=== PATIENT | male | born 1975 | race Hispanic/Latino ===

== ENCOUNTER 2025-08-02 12:15 | Inpatient (IN) | payer OTHER, SELFPAY ==
[2025-08-02 12:58] LABS: ALT (SGPT) 103 U/L (Less than 45); AST (SGOT) 337 U/L (11-34); Albumin 1.9 g/dL (3.1-4.5); Alkaline Phosphatase 254 U/L (40-110); Anion Gap 27 mmol/L (10-20); BUN (Urea Nitrogen) 103 mg/dL (8.9-20.6); Bilirubin, Total 13.9 mg/dL (0.3-1.2); Calc. Creatinine Clearance 0 mL/min (70-130); Calcium 7.5 mg/dL (7.8-10.44); Carbon Dioxide 13 mmol/L (22-29); Chloride 98 mmol/L (98-107); Globulin 4.6 g/dL (2.4-3.5); Glucose 93 mg/dL (70-105); Lipase 146 U/L (8-78); Magnesium 2.3 mg/dL (1.6-2.6); Potassium 4.0 mmol/L (3.5-5.1); Sodium 134 mmol/L (136-145)
[2025-08-02 13:01] LABS: INR-International Normal Ratio 3.5; Prothrombin Time 35.4 sec (12.0-14.7)
[2025-08-02 13:02] LABS: PTT 55.1 sec (22.9-36.1)
[2025-08-02 13:08] LABS: Acetaminophen 17 mcg/mL (Less than 10); Salicylate Less than 8.0 mg/dL (Less than 8.0)
[2025-08-02 13:11] LABS: D-Dimer Test 13.9 mcg/mL (0.27-0.43)
[2025-08-02] MEDS ORDERED: Famotidine/PF 20 mg/2ml Vial ONE (13:25)
[2025-08-02] MEDS ORDERED: Pantoprazole 40 MG VIAL ONE (13:25)
[2025-08-02 14:15] LABS: Hematocrit 24.1 % (42.0-52.0); Hemoglobin 8.1 g/dL (14.0-18.0); Mean Corpuscular Hemoglobin 30.5 pg (27.0-31.0); Mean Corpuscular Volume 90.6 fL (78.0-98.0); Platelet Count 23 10x3/uL (130-400); Red Blood Cell (RBC) Count 2.66 mill/uL (4.70-6.10); White Blood Cell (WBC) Count 39.08 10x3/uL (4.8-10.8)
[2025-08-02 14:15] LABS: Hematocrit 24.3 % (42.0-52.0); Hemoglobin 7.9 g/dL (14.0-18.0); Mean Corpuscular Hemoglobin 29.9 pg (27.0-31.0); Mean Corpuscular Volume 92.0 fL (78.0-98.0); Platelet Count 26 10x3/uL (130-400); Red Blood Cell (RBC) Count 2.64 mill/uL (4.70-6.10); Reflex for Review?? YES; White Blood Cell (WBC) Count 37.76 10x3/uL (4.8-10.8)
[2025-08-02] MEDS ORDERED: Octreotide Acetate 1,250 MCG in Sodium Chloride 0.9% 250 ML 250 ML IVPB SCH ×2 (14:15→16:30)
[2025-08-02] MEDS ORDERED: Azithromycin 500 MG VIAL ONE (14:33)
[2025-08-02] MEDS ORDERED: cefTRIAXone (ROCEPHIN) 2 GM VIAL ONE (14:33)
[2025-08-02 14:48] LABS: Anisocytosis MARKED = >30 cells HPF (0-5); Burr Cells SLIGHT = 2-5 cells HPF (0-1); Macrocytosis MODERATE=16-30 cells HPF (0-5); Microcytosis SLIGHT = 6-15 cells HPF (0-5); Platelet Adequacy Comment Significant Decrease; Polychromasia SLIGHT = 2-3 cells HPF (0-2); Smudge Cells 2.0 %
[2025-08-02 14:51] LABS: Anisocytosis MODERATE=16-30 cells HPF (0-5); Burr Cells MODERATE= 6-15 cells HPF (0-1); Dohle Bodies SLIGHT; Macrocytosis MODERATE=16-30 cells HPF (0-5); Microcytosis SLIGHT = 6-15 cells HPF (0-5); Ovalocytes SLIGHT = 2-5 cells HPF (0-1); Platelet Adequacy Comment Significant Decrease; Poikilocytosis MODERATE=16-30 cells HPF (0-5); Polychromasia SLIGHT = 2-3 cells HPF (0-2); Smudge Cells 1.0 %; Target Cells SLIGHT = 2-5 cells HPF (0-1); Toxic Granulation MODERATE
[2025-08-02] MEDS ORDERED: Communication Order-Pharmacy FS SCH (16:17)
[2025-08-02] MEDS ORDERED: Ondansetron PF 4 MG/2 ML Vial IVP PRN (16:19)
[2025-08-02] MEDS ORDERED: Melatonin 3 MG TAB PO PRN (16:19)
[2025-08-02 17:13] LABS: Magnesium 2.4 mg/dL (1.6-2.6)
[2025-08-02] MEDS: Vancomycin (BATCH) 2.5 GM in Premix 1 BAG IVPB SCH (17:17)
[2025-08-02] MEDS: DEXTROSE 5% IV SCH ×2 (17:18→19:47)
[2025-08-02] MEDS: WATER IV SCH ×2 (17:18→19:47)
[2025-08-02] MEDS: ACETYLCYSTEINE IV SCH ×2 (17:18→19:47)
[2025-08-02] MEDS: Albumin 25% 25 GM (100 mL) BOT IVPB SCH (17:23)
[2025-08-02] MEDS: Pantoprazole 40 MG VIAL IVP SCH (17:23)
[2025-08-02] MEDS: Calcium Chloride 1 GM/10 ML Abboject SYRINGE IVP SCH (17:23)
[2025-08-02 17:51] LABS: Actual Bicarbonate (HCO3v) 15.7 mEq/L (22-28); Base Excess -10.3 mEq/L (-2.0 to +3.0); Calcium, Ionized (venous) 0.87 mmol/L (1.16-1.32); Chloride (VBG) 100 mmol/L (98-106); Hematocrit-VBG 29 % (42.0-52.0); Hemoglobin (Hb) 9.7 g/dL (13.1-17.2); Potassium (VBG) 4.32 mmol/L (3.70-5.30); Sodium 133 mmol/L (133-146)
[2025-08-02 18:29] VITALS: BMI 48.0
[2025-08-02] MEDS ORDERED: Vancomycin Dose by Levels Sliding Scale (Wt > 99) FS SCH (18:45)
[2025-08-02 18:59] LABS: Cocaine Metabolite Screen Negative (Negative); THC/Cannabinoid Screen Negative (Negative); Tricyclic Screen Negative (Negative)
[2025-08-02 19:17] LABS: Bacteria/HPF None Seen HPF (None Seen); Glucose, Urine (Dipstick) 30 mg/dL (Negative); Leukocyte 25 Leu/uL (Negative); Protein, Urine (Dipstick) 70 mg/dL (Neg-Trace); Specific Gravity, Urine 1.028 (1.002-1.036); WBC/HPF 21-50 HPF (0-3)
[2025-08-02] MEDS ORDERED: Vancomycin 1 GM in Sodium Chloride 0.9% 250 ML 300 ML IVPB SCH (21:00)
[2025-08-02] MEDS ORDERED: Pantoprazole 40 MG VIAL IVP SCH (21:00)
[2025-08-02 21:01] LABS: Hematocrit 26.2 % (42.0-52.0); Hemoglobin 8.2 g/dL (14.0-18.0); Platelet Count 22 10x3/uL (130-400)
[2025-08-02] MEDS: Multivit, Therapeutic 1 TAB PO SCH (21:05)
[2025-08-02] MEDS: Folic Acid 1 MG TAB PO SCH (21:05)
[2025-08-02] MEDS: Pantoprazole 80 MG, Admixture Fee 1 EACH in Sodium Chloride 0.9% 100 ML IVPB SCH (21:21)
[2025-08-02] MEDS: Mupirocin 1 GM TUBE NASAL DECOLONIZATION TP SCH (22:46)
[2025-08-03] MEDS: DEXTROSE 5% IV SCH (01:48)
[2025-08-03] MEDS: ACETYLCYSTEINE IV SCH (01:48)
[2025-08-03] MEDS: WATER IV SCH (01:48)
[2025-08-03 04:43] LABS: Hematocrit 21.2 % (42.0-52.0); Hemoglobin 6.9 g/dL (14.0-18.0); Mean Corpuscular Hemoglobin 30.0 pg (27.0-31.0); Mean Corpuscular Volume 92.2 fL (78.0-98.0); Platelet Count 17 10x3/uL (130-400); Red Blood Cell (RBC) Count 2.30 mill/uL (4.70-6.10); White Blood Cell (WBC) Count 32.12 10x3/uL (4.8-10.8)
[2025-08-03 04:48] LABS: ALT (SGPT) 98 U/L (Less than 45); AST (SGOT) 300 U/L (11-34); Albumin 2.2 g/dL (3.1-4.5); Alkaline Phosphatase 185 U/L (40-110); Anion Gap 25 mmol/L (10-20); BUN (Urea Nitrogen) 115 mg/dL (8.9-20.6); Bilirubin, Total 15.0 mg/dL (0.3-1.2); Calc. Creatinine Clearance 39 mL/min (70-130); Calcium 7.4 mg/dL (7.8-10.44); Carbon Dioxide 16 mmol/L (22-29); Chloride 98 mmol/L (98-107); Globulin 4.2 g/dL (2.4-3.5); Glucose 196 mg/dL (70-105); Potassium 4.1 mmol/L (3.5-5.1); Sodium 135 mmol/L (136-145)
[2025-08-03 05:21] LABS: Platelet Adequacy Comment Significant Decrease; Polychromasia SLIGHT = 2-3 cells HPF (0-2); Smudge Cells 3.0 %
[2025-08-03] MEDS: Furosemide 20 MG (2 mL) VIAL SLOW IVP SCH (06:45)
[2025-08-03] MEDS ORDERED: fentaNYL PF 100 MCG/2 ML SYRINGE ONE (07:02)
[2025-08-03 07:12] LABS: INR-International Normal Ratio 3.4; Prothrombin Time 34.9 sec (12.0-14.7)
[2025-08-03 07:13] LABS: PTT 51.9 sec (22.9-36.1)
[2025-08-03] MEDS ORDERED: Rocuronium Bromide 10 MG/ML (10ML VIAL) ONE (07:52)
[2025-08-03] MEDS ORDERED: PROPOFOL 200 MG/20 ML VIAL ONE (07:52)
[2025-08-03] MEDS ORDERED: PHENYLEPHRINE-NS 100 MCG/ML 10 ML SYRINGE ONE (08:42)
[2025-08-03] MEDS: Norepinephrine 8 MG/0.9% NS 250 ML IVPB SCH (09:50)
[2025-08-03] MEDS ORDERED: Propofol BOLUS 1,000 MG/100 ML VIAL IV PRN (10:12)
[2025-08-03] MEDS ORDERED: Fentanyl BOLUS 100 ML IVPB PRN (10:12)
[2025-08-03] MEDS ORDERED: DISCONTINUE PREVIOUS NARCOTIC PAIN MEDICATIONS AND BENZODIAZEPINES FS SCH (10:12)
[2025-08-03] MEDS: Pantoprazole 40 MG VIAL IVP SCH (10:42)
[2025-08-03] MEDS ORDERED: Silver Nitrate Application 1 EACH ONE (11:24)
[2025-08-03 11:53] VITALS: BMI 48.5
[2025-08-03] MEDS: Norepinephrine 8 MG/0.9% NS 250 ML ONE (12:01)
[2025-08-03] MEDS: Mupirocin 1 GM TUBE NASAL DECOLOIZATION TP SCH (12:01)
[2025-08-03] MEDS: EPINEPHrine 1 MG/10 ML Abboject SYRINGE FS SCH (12:18)
[2025-08-03] MEDS: Vasopressin In 0.9 % NaCl 40 UNIT in Premix 1 BAG IV SCH (12:48)
[2025-08-03 13:08] LABS: Platelet Count 24 10x3/uL (130-400)
[2025-08-03 13:11] LABS: Hematocrit 18.2 % (42.0-52.0); Hemoglobin 5.7 g/dL (14.0-18.0); Mean Corpuscular Hemoglobin 29.7 pg (27.0-31.0); Mean Corpuscular Volume 94.8 fL (78.0-98.0); Platelet Count 26 10x3/uL (130-400); Red Blood Cell (RBC) Count 1.92 mill/uL (4.70-6.10); White Blood Cell (WBC) Count 34.07 10x3/uL (4.8-10.8)
[2025-08-03 13:35] LABS: Anion Gap 25 mmol/L (10-20); BUN (Urea Nitrogen) 116 mg/dL (8.9-20.6); Calc. Creatinine Clearance 37 mL/min (70-130); Calcium 6.6 mg/dL (7.8-10.44); Carbon Dioxide 17 mmol/L (22-29); Chloride 100 mmol/L (98-107); Glucose 169 mg/dL (70-105); Potassium 4.8 mmol/L (3.5-5.1); Sodium 137 mmol/L (136-145)
[2025-08-03 13:39] LABS: INR-International Normal Ratio 4.1; Prothrombin Time 39.7 sec (12.0-14.7)
[2025-08-03 13:40] LABS: Fibrinogen 256 mg/dL (253-463); PTT 52.4 sec (22.9-36.1)
[2025-08-03 13:44] LABS: Anisocytosis MODERATE=16-30 cells HPF (0-5); Burr Cells SLIGHT = 2-5 cells HPF (0-1); Dohle Bodies SLIGHT; Macrocytosis MODERATE=16-30 cells HPF (0-5); Nucleated RBC (Manual Ct) 2 % (0); Ovalocytes SLIGHT = 2-5 cells HPF (0-1); Platelet Adequacy Comment Significant Decrease; Polychromasia SLIGHT = 2-3 cells HPF (0-2); Smudge Cells 4.6 %; Toxic Granulation MODERATE
[2025-08-03 13:49] LABS: D-Dimer Test 8.32 mcg/mL (0.27-0.43)
[2025-08-03] MEDS: CALCIUM GLUC 1 GM/NS 50 ML 1 GM in Premix 1 BAG IVPB SCH (14:00)
[2025-08-03 14:14] LABS: Vancomycin, Random 22.6 ug/mL (See Comment)
[2025-08-03] MEDS: Tranexamic Acid 1,000 MG, Admixture Fee 1 EACH in Sodium Chloride 0.9% 250 ML 250 ML IVPB SCH (15:14)
[2025-08-03] MEDS: cefTRIAXone\\ROCEPHIN 2 GM in Sodium Chloride 0.9% 100 ML IVPB SCH (15:15)
[2025-08-03] MEDS: Phenylephrine 40 MG/NS 250 ML 40 MG in Premix 1 BAG IVPB SCH (18:03)
[2025-08-03] MEDS: Octreotide Acetate 1,250 MCG in Sodium Chloride 0.9% 250 ML 250 ML IVPB SCH (18:44)
[2025-08-03] MEDS: Hydrocortisone Sod Succ/PF 100 mg/2 ml Vial IVP SCH (19:48)
[2025-08-03 20:34] LABS: Base Excess (BEa) -21.4 mEq/L (-2.0 to +3.0); CO2 Tension 41.7 mmHg (35.0-45.0); Calcium, Ionized (arterial) 0.81 mmol/L (1.12-1.30); Hematocrit-ABG 23 % (42.0-52.0); Hemoglobin (Hb) 7.7 g/dL (14.0-18.0); O2 Tension (PaO2), arterial 73.5 mmHg (80.0-100.0)
[2025-08-03 20:37] LABS: Actual Bicarbonate (HCO3a) 9.1 mEq/L (22-28); pH, Arterial 6.957 (7.35-7.45)
[2025-08-03 20:38] LABS: ALV-art Gradient 444.775 mmHg (0-20); Potassium - ABG Lab 6.57 mmol/L (3.70-5.30); Puncture Site LINE
[2025-08-03] MEDS: Sodium Bicarb 50 MEQ/50 ML Abboject 8.4% SYRINGE IVP SCH (20:40)
[2025-08-03] MEDS: Calcium Chloride 1 GM/10 ML Abboject SYRINGE IVP SCH ×2 (20:45→21:21)
[2025-08-03] MEDS: Dextrose 50% Abboject 50 ML SYRINGE SLOW IVP SCH (20:45)
[2025-08-03] MEDS: Calcium Chloride 1 GM/10 ML Abboject SYRINGE ONE (21:19)
[2025-08-03] MEDS: Dextrose 50% Abboject 50 ML SYRINGE ONE (21:19)
[2025-08-03] MEDS: Sodium Bicarb 50 MEQ/50 ML Abboject 8.4% SYRINGE ONE (21:19)
[2025-08-03 21:28] LABS: Hematocrit 19.4 % (42.0-52.0); Hemoglobin 6.0 g/dL (14.0-18.0); Platelet Count 83 10x3/uL (130-400)
[2025-08-03 21:47] LABS: INR-International Normal Ratio 5.2; Prothrombin Time 48.5 sec (12.0-14.7)
[2025-08-03 21:48] LABS: Anion Gap 34 mmol/L (10-20); BUN (Urea Nitrogen) 112 mg/dL (8.9-20.6); Calc. Creatinine Clearance 32 mL/min (70-130); Calcium 7.0 mg/dL (7.8-10.44); Carbon Dioxide 12 mmol/L (22-29); Chloride 101 mmol/L (98-107); Glucose 95 mg/dL (70-105); PTT 69.6 sec (22.9-36.1); Potassium 6.2 mmol/L (3.5-5.1); Sodium 141 mmol/L (136-145)
[2025-08-03] MEDS ORDERED: LOKELMA 10 GM PACKET PER TUBE SCH (22:30)
[2025-08-03 22:37] LABS: Base Excess (BEa) -16.2 mEq/L (-2.0 to +3.0); CO2 Tension 30.4 mmHg (35.0-45.0); Calcium, Ionized (arterial) 0.86 mmol/L (1.12-1.30); Hematocrit-ABG 19 % (42.0-52.0); Hemoglobin (Hb) 6.4 g/dL (14.0-18.0); O2 Tension (PaO2), arterial 116.3 mmHg (80.0-100.0); Potassium - ABG Lab 5.33 mmol/L (3.70-5.30); pH, Arterial 7.170 (7.35-7.45)
[2025-08-03 22:38] LABS: Actual Bicarbonate (HCO3a) 10.8 mEq/L (22-28); Puncture Site LINE
[2025-08-03 22:39] LABS: ALV-art Gradient 558.700 mmHg (0-20)
[2025-08-04] MEDS: Calcium Chloride 1 GM/10 ML Abboject SYRINGE IVP SCH ×2 (00:04→04:34)
[2025-08-04] MEDS: Hydrocortisone Sod Succ/PF 100 mg/2 ml Vial IVP SCH (01:33)
[2025-08-04 04:09] LABS: Hematocrit 23.2 % (42.0-52.0); Hemoglobin 7.4 g/dL (14.0-18.0); Mean Corpuscular Hemoglobin 29.2 pg (27.0-31.0); Mean Corpuscular Volume 91.7 fL (78.0-98.0); Platelet Count 61 10x3/uL (130-400); Red Blood Cell (RBC) Count 2.53 mill/uL (4.70-6.10); White Blood Cell (WBC) Count 25.84 10x3/uL (4.8-10.8)
[2025-08-04 04:22] LABS: INR-International Normal Ratio 3.8; Prothrombin Time 38.1 sec (12.0-14.7)
[2025-08-04 04:23] LABS: PTT 60.6 sec (22.9-36.1)
[2025-08-04 04:25] LABS: ALT (SGPT) 367 U/L (Less than 45); AST (SGOT) 2556 U/L (11-34); Albumin 2.0 g/dL (3.1-4.5); Alkaline Phosphatase 257 U/L (40-110); Anion Gap 39 mmol/L (10-20); BUN (Urea Nitrogen) 117 mg/dL (8.9-20.6); Bilirubin, Total 10.3 mg/dL (0.3-1.2); Calc. Creatinine Clearance 33 mL/min (70-130); Calcium 7.3 mg/dL (7.8-10.44); Carbon Dioxide 11 mmol/L (22-29); Chloride 100 mmol/L (98-107); Globulin 2.5 g/dL (2.4-3.5); Glucose 41 mg/dL (70-105); Potassium 6.5 mmol/L (3.5-5.1); Sodium 143 mmol/L (136-145)
[2025-08-04] MEDS ORDERED: Glucagon 1 MG/ML KIT IM PRN (04:32)
[2025-08-04] MEDS: Dextrose 50% Abboject 50 ML SYRINGE SLOW IVP SCH (04:34)
[2025-08-04 04:42] LABS: Anisocytosis SLIGHT = 6-15 cells HPF (0-5); Burr Cells SLIGHT = 2-5 cells HPF (0-1); Macrocytosis SLIGHT = 6-15 cells HPF (0-5); Nucleated RBC (Manual Ct) 7 % (0); Platelet Adequacy Comment Platelets Decreased; Poikilocytosis SLIGHT = 6-15 cells HPF (0-5); Polychromasia SLIGHT = 2-3 cells HPF (0-2); Smudge Cells 6.7 %; Toxic Granulation SLIGHT
[2025-08-04] MEDS: Sodium Bicarb 50 MEQ/50 ML Abboject 8.4% SYRINGE IVP SCH ×2 (04:51→09:25)
[2025-08-04] MEDS: Dextrose 50% Abboject 50 ML SYRINGE SLOW IVP PRN (05:57)
[2025-08-04 07:27] LABS: Base Excess (BEa) -14.7 mEq/L (-2.0 to +3.0); CO2 Tension 30.6 mmHg (35.0-45.0); Hematocrit-ABG 20 % (42.0-52.0); Hemoglobin (Hb) 6.9 g/dL (14.0-18.0); O2 Tension (PaO2), arterial 93.3 mmHg (80.0-100.0); Potassium - ABG Lab 5.95 mmol/L (3.70-5.30)
[2025-08-04 07:29] LABS: Actual Bicarbonate (HCO3a) 11.9 mEq/L (22-28); Calcium, Ionized (arterial) 0.79 mmol/L (1.12-1.30); pH, Arterial 7.208 (7.35-7.45)
[2025-08-04] MEDS: CALCIUM GLUC 1 GM/NS 50 ML 1 GM in Premix 1 BAG IVPB SCH ×2 (09:40→11:26)
[2025-08-04] MEDS: Sodium Bicarb 50 MEQ/50 ML Abboject 8.4% SYRINGE ONE (10:14)
[2025-08-04 10:18] LABS: Potassium 6.8 mmol/L (3.5-5.1)
[2025-08-04 15:42] VITALS: BP 119/65
[2025-08-04 19:20] VITALS: TEMP 97.9
[2025-08-05] MEDS ORDERED: Thiamine 100 MG TAB PO SCH (09:00)
== END 2025-08-04 18:39 | disposition expired | DRG 871 ==
LOC: ERS 12:15 → CCU 15:50
PROVIDERS: ADMIT Family Medicine; ATTEND Family Medicine
PROC: 3E03329 Introduction of Other Anti-infective into Peripheral Vein, Percutaneous Approach (ICD-10-PCS; 2025-08-02)
PROC: 30233L1 Transfusion of Nonautologous Fresh Plasma into Peripheral Vein, Percutaneous Approach (ICD-10-PCS; 2025-08-02)
PROC: 30233R1 Transfusion of Nonautologous Platelets into Peripheral Vein, Percutaneous Approach (ICD-10-PCS; 2025-08-02)
PROC: 0DH Gastrointestinal System, Insertion (ICD-10-PCS; principal; 2025-08-03)
PROC: 0B9J8ZZ Drainage of Left Lower Lung Lobe, Via Natural or Artificial Opening Endoscopic (ICD-10-PCS; 2025-08-03)
PROC: 0B9F8ZZ Drainage of Right Lower Lung Lobe, Via Natural or Artificial Opening Endoscopic (ICD-10-PCS; 2025-08-03)
PROC: 03HY32Z Insertion of Monitoring Device into Upper Artery, Percutaneous Approach (ICD-10-PCS; 2025-08-03)
PROC: 4A133B1 Monitoring of Arterial Pressure, Peripheral, Percutaneous Approach (ICD-10-PCS; 2025-08-03)
PROC: 4A133J1 Monitoring of Arterial Pulse, Peripheral, Percutaneous Approach (ICD-10-PCS; 2025-08-03)
PROC: 4A133R1 Monitoring of Arterial Saturation, Peripheral, Percutaneous Approach (ICD-10-PCS; 2025-08-03)
PROC: 0BH17EZ Insertion of Endotracheal Airway into Trachea, Via Natural or Artificial Opening (ICD-10-PCS; 2025-08-03)
PROC: 5A1935Z Respiratory Ventilation, Less than 24 Consecutive Hours (ICD-10-PCS; 2025-08-03)
PROC: 5A0935A Assistance with Respiratory Ventilation, Less than 24 Consecutive Hours, High Flow/Velocity Cannula (ICD-10-PCS; 2025-08-03)
PROC: 30233N1 Transfusion of Nonautologous Red Blood Cells into Peripheral Vein, Percutaneous Approach (ICD-10-PCS; 2025-08-03)
PROC: 30233M1 Transfusion of Nonautologous Plasma Cryoprecipitate into Peripheral Vein, Percutaneous Approach (ICD-10-PCS; 2025-08-03)
DX: A41.9 Sepsis, unspecified organism (principal); J95.821 Acute postprocedural respiratory failure; K72.00 Acute and subacute hepatic failure without coma; K76.7 Hepatorenal syndrome; R65.21 Severe sepsis with septic shock; N17.9 Acute kidney failure, unspecified; K92.1 Melena; E87.20 Acidosis, unspecified; D68.9 Coagulation defect, unspecified; Z68.43 Body mass index [BMI] 50.0-59.9, adult; C22.0 Liver cell carcinoma; E87.1 Hypo-osmolality and hyponatremia; D62 Acute posthemorrhagic anemia; Z51.5 Encounter for palliative care; K72.10 Chronic hepatic failure without coma; E66.01 Morbid (severe) obesity due to excess calories; R04.0 Epistaxis; D64.9 Anemia, unspecified; D69.6 Thrombocytopenia, unspecified; E83.51 Hypocalcemia; D72.829 Elevated white blood cell count, unspecified; E88.09 Other disorders of plasma-protein metabolism, not elsewhere classified; K74.60 Unspecified cirrhosis of liver; K70.10 Alcoholic hepatitis without ascites; N18.30 Chronic kidney disease, stage 3 unspecified; I12.9 Hypertensive chronic kidney disease with stage 1 through stage 4 chronic kidney disease, or unspecified chronic kidney disease; E87.5 Hyperkalemia; T39.1X1A Poisoning by 4-Aminophenol derivatives, accidental (unintentional), initial encounter; Z79.899 Other long term (current) drug therapy
CPT/HCPCS: 36415; 36416; 36430; 70450; 71045; 71250; 74177; 80053; 80202; 80306; 80307; 81001; 82105; 82140; 82805; 83605; 83690; 83735; 83880; 84100; 84484; 84597; 85025; 85049; 85060; 85300; 85362; 85379; 85384; 85610; 85730; 86850; 86900; 86901; 87076; 87077; 87149; 87186; 93005; 93010; 94002; 94003; 96360; 96361; 96365; 96366; 96368; 96375; 96376; 99292; J0132; J0165; J0456; J0613; J0696; J1308; J1720; J1815; J1940; J2060; J2250; J2270; J2354; J2470; J2597; J2704; J3373; J3411; J7050; J7070; J7999; P9012; P9016; P9035; P9047; P9059